=== PATIENT | female | born 1960 | race Two or more races ===

== ENCOUNTER 2020-06-23 05:00 | Day surgery (SDC) | payer OTHER ==
[~2020-06-23 05:00] MED LIST: AMLODIPINE-OLM1 EAC2 PO; HYDRODIURIL12.5 MG PO
== END 2020-06-23 11:55 | disposition home or self-care (01) ==
LOC: CIR.AMB 05:00
PROVIDERS: ATTEND Specialist
DX: K80.10 Calculus of gallbladder with chronic cholecystitis without obstruction (principal); Z20.828 Contact with and (suspected) exposure to other viral communicable diseases